=== PATIENT | female | born 1955 | race African-American/Black ===

== ENCOUNTER 2019-05-21 16:53 | Emergency (ER) | payer MEDICARE, MEDICAID ==
[~2019-05-21] VITALS: Ht 167.6 cm; Wt 91.0 kg
[2019-05-21 16:58] VITALS: BP 137/64
== END 2019-05-21 20:24 | disposition left against medical advice (07) ==
LOC: ER 16:53
DX: M79.602 Pain in left arm (principal); Z53.21 Procedure and treatment not carried out due to patient leaving prior to being seen by health care provider